=== PATIENT | female | born 2000 | race Caucasian/White ===

== ENCOUNTER 2022-07-24 18:58 | Emergency (ER) | payer OTHER ==
[2022-07-25] MEDS ORDERED: Acetaminophen 325 MG Tab PO ONE (01:43)
[2022-07-25] MEDS ORDERED: Ibuprofen 400 MG Tab PO ONE (01:43)
[2022-07-25 03:24] LABS: BLOOD UREA NITROGEN,BUN 9 mg/dL (7.0-18.0); CARBON DIOXIDE,CO2 27.5 mmol/L (21.0-32.0); CHLORIDE,CL 100 mmol/L (98-107); GLUCOSE RANDOM 87 mg/dL (74-106); POTASSIUM,K 3.7 mmol/L (3.5-5.1); SODIUM,NA 139 mmol/L (136-145)
[2022-07-25 03:28] LABS: ESTIMATED GFR 109 mL/min (>60)
[2022-07-25] MEDS ORDERED: valACYclovir 500 MG Tab PO ONE ×2 (03:45→03:46)
[2022-07-25 04:32] LABS: HIV12 AG/AB 4TH GEN W/REFLEX < 0.1 INDEX (<1.0)
== END 2022-07-25 04:09 | disposition home or self-care (01) ==
LOC: MW.ED 18:58
DX: N94.9 Unspecified condition associated with female genital organs and menstrual cycle (principal)
CPT/HCPCS: 36415; 80053; 81001; 84702; 86592; 87389; 87529; 99283; A9270